=== PATIENT | male | born 1955 | race Caucasian/White ===

== ENCOUNTER 2016-06-13 07:41 | Day surgery (SDC) | payer OTHER ==
[2016-06-13] MEDS ORDERED: fentaNYL 100 MCG/2 ML INJ IVP ONE (07:46)
[2016-06-13] MEDS ORDERED: MIDAZOLAM 2 MG/2 ML VIAL IVP ONE (07:46)
[2016-06-13] MEDS ORDERED: PROPOFOL 200 MG/20 ML VIAL IVP ONE (07:46)
[2016-06-13] MEDS ORDERED: NS 500 ML IV ONE (07:46)
[2016-06-13] MEDS ORDERED: BENZOCAINE UNIT DOSE SPRAY HURRICAINE MM ONE (07:46)
--- NOTE | 2016-06-13 07:59 | CPEKG ---
Heart Rate: 80 RR Interval: 750 QRSD Interval: 80 QT Interval: 400 QTC Interval: 462 QRS [place]: 13 T Wave Welch: 57 EKG Severity - ABNORMAL ECG - EKG Impression: ATRIAL FIBRILLATION, V-RATE 61-94 EKG Impression: BORDERLINE R WAVE PROGRESSION, ANTERIOR LEADS Electronically Signed By: Yannick Bray 13-Jun-2016 14:32:12
[2016-06-13] MEDS ORDERED: ATROPINE SULFATE 1 MG/10 ML SYR ONE (08:26)
[2016-06-13 08:27] LABS: APTT 32.6 SEC (23.0-38.0); INR 1.14 (0.83-1.16); PROTIME(PATIENT) 14.5 SEC (12.0-15.0)
[2016-06-13 08:30] LABS: ANION GAP 8 mEq/L (8-16); CALCIUM 9.1 mg/dL (8.5-10.4); CARBON DIOXIDE 25 mEq/l (22-31); CHLORIDE 107 mEq/L (97-110); CREATININE 0.8 mg/dL (0.7-1.3); GLOMERULAR FILTRATION RATE > 60; GLUCOSE 102 mg/dL (70-100); MAGNESIUM 2.1 mg/dL (1.6-2.3); POTASSIUM 4.3 mEq/L (3.5-5.2); SODIUM 140 mEq/L (134-144)
[2016-06-13] MEDS ORDERED: PROPOFOL 200 MG/20 ML VIAL ONE (09:31)
[2016-06-13] MEDS ORDERED: LIDOCAINE 2% 5 ML SDV ONE (09:32)
--- NOTE | 2016-06-13 10:01 | PDTEE1 ---
LAYNE Cardioversion Procedure Procedure: Electrical Cardioversion, Transesophageal Echo Indications: Atrial Fibrillation Consent: Signed and in Chart Anticoagulation: Eliquis Procedural Details: Pads were placed in anterior-posterior position. LAYNE probe was advanced and standard images obtained. There is no evidence of left atrial or left atrial appendage thrombus. Synchronized cardioversion attempt #1: 200J Results: Normal sinus rhythm Conclusions: Successful LAYNE Cardioversion Patient Problems: Problems Problem Status Onset Head injury Acute Multiple rib fractures Acute Thumb fracture Acute
--- NOTE | 2016-06-13 10:01 | CPEKG ---
Heart Rate: 67 RR Interval: 896 P-R Interval: 212 QRSD Interval: 84 QT Interval: 432 QTC Interval: 456 P [place]: 43 QRS [place]: 5 T Wave [place]: 54 EKG Severity - ABNORMAL ECG - EKG Impression: SINUS RHYTHM EKG Impression: MULTIFORM VENTRICULAR PREMATURE COMPLEXES EKG Impression: NORMAL SINUS RHYTHM HAS REPLACED ATRIAL FIBRILLATION Electronically Signed By: Yannick Bray 13-Jun-2016 14:32:42
== END 2016-06-13 11:15 | disposition home or self-care (01) ==
LOC: FCATH 07:41
PROVIDERS: ATTEND Internal Medicine Interventional Cardiology
PROC: 5A2204Z Restoration of Cardiac Rhythm, Single (ICD-10-PCS; principal; 2016-06-13)
PROC: B245ZZ4 Ultrasonography of Left Heart, Transesophageal (ICD-10-PCS; principal; 2016-06-13)
DX: I48.0 Paroxysmal atrial fibrillation (principal)
CPT/HCPCS: J0461; J2704

== ENCOUNTER 2016-07-31 06:56 | Day surgery (SDC) | payer BC, OTHER ==
[2016-07-31] MEDS ORDERED: NS 500 ML IV ONE (07:02)
[2016-07-31] MEDS ORDERED: MIDAZOLAM 2 MG/2 ML VIAL IVP ONE (07:02)
[2016-07-31] MEDS ORDERED: fentaNYL 100 MCG/2 ML INJ IVP ONE (07:02)
[2016-07-31] MEDS ORDERED: PROPOFOL 200 MG/20 ML VIAL IVP ONE (07:02)
--- NOTE | 2016-07-31 07:19 | CPEKG ---
Heart Rate: 67 RR Interval: 896 QRSD Interval: 92 QT Interval: 456 QTC Interval: 482 QRS [place]: 6 T Wave [place]: 48 EKG Severity - ABNORMAL ECG - EKG Impression: ATRIAL FIBRILLATION EKG Impression: BORDERLINE PROLONGED QT INTERVAL Electronically Signed By: Solomon Mason 31-Jul-2016 08:04:59
[2016-07-31] MEDS ORDERED: ATROPINE SULFATE 1 MG/10 ML SYR ONE (07:32)
[2016-07-31 07:38] LABS: APTT 33.4 SEC (23.0-38.0); INR 1.3 (0.83-1.16); PROTIME(PATIENT) 16.2 SEC (12.0-15.0)
[2016-07-31 08:00] LABS: ANION GAP 11 mEq/L (8-16); CALCIUM 9.3 mg/dL (8.5-10.4); CARBON DIOXIDE 24 mEq/l (22-31); CHLORIDE 107 mEq/L (97-110); CREATININE 0.8 mg/dL (0.7-1.3); GLOMERULAR FILTRATION RATE > 60; GLUCOSE 119 mg/dL (70-100); MAGNESIUM 2.2 mg/dL (1.6-2.3); POTASSIUM 4.4 mEq/L (3.5-5.2); SODIUM 142 mEq/L (134-144)
[2016-07-31] MEDS ORDERED: PROPOFOL 200 MG/20 ML VIAL ONE (09:09)
[2016-07-31] MEDS ORDERED: LIDOCAINE 1% 5 ML SDV ONE (09:10)
[2016-07-31] MEDS ORDERED: SUCCINYLCHOLINE CHLORIDE*ANESTHESIA ONLY*200 MG/10 ML SYR IVP ONE (09:10)
--- NOTE | 2016-07-31 09:24 | CPEKG ---
Heart Rate: 55 RR Interval: 1091 P-R Interval: 264 QRSD Interval: 90 QT Interval: 476 QTC Interval: 456 P [place]: 37 QRS [place]: 30 T Wave [place]: 61 EKG Severity - ABNORMAL ECG - EKG Impression: SINUS RHYTHM EKG Impression: ATRIAL PREMATURE COMPLEX EKG Impression: FIRST DEGREE AV BLOCK Electronically Signed By: Solomon Mason 01-Aug-2016 07:20:57
--- NOTE | 2016-08-01 18:13 | EPPROC ---
Electrophysiology Procedure Note: Procedure: CV Indication:AF Procedure: Pt sedated by anesthesia staff. 200J of DCCV used. First attempt did not convert the pt. Patch position changed. Another 200J of DCCV attempted. pt converted to SR. Conclusion: Successful CV Patient Problems: Problems Problem Status Onset Head injury Acute Multiple rib fractures Acute Thumb fracture Acute
== END 2016-07-31 10:33 | disposition home or self-care (01) ==
LOC: FSGY 06:56 → FCATH 10:33
PROVIDERS: ATTEND Internal Medicine Cardiovascular Disease
PROC: 5A2204Z Restoration of Cardiac Rhythm, Single (ICD-10-PCS; principal; 2016-07-31)
DX: I48.0 Paroxysmal atrial fibrillation (principal)
CPT/HCPCS: J0330; J0461; J2704